=== PATIENT | female | born 1965 | race African-American/Black ===

== ENCOUNTER 2020-09-21 22:14 | Emergency (ER) | payer MEDICAID, OTHER ==
[~2020-09-21] VITALS: Ht 170.2 cm; Wt 167.8 kg
--- NOTE | 2020-09-21 22:32 | NUR ---
DO ESTHELA in room to do MSE.
[2020-09-21] MEDS ORDERED: MORPHINE SULFATE 4 MG/1 ML DISP.SYRIN IM ONE (22:45)
--- NOTE | 2020-09-21 22:50 | NUR ---
controls technician in room to take x-rays of patient.
--- NOTE | 2020-09-21 23:00 | NUR ---
Patient requested hot pack to reduce comfort of left knee. OK per DO Conrado and applied.
[2020-09-21] MEDS ORDERED: MORPHINE SULFATE 4 MG/1 ML DISP.SYRIN ONE (23:01)
[2020-09-21] MEDS ORDERED: OXYC-133 PO (23:26)
[2020-09-21] MEDS ORDERED: DIPH25TA62 PO (23:26)
[2020-09-21 23:30] VITALS: BP 138/88
--- NOTE | 2020-09-21 23:30 | NUR ---
Patient discharged to home in stable condition. Written and verbal after care instructions given. Patient verbalizes understanding of instructions. Stressed follow up or return to ER for worsening s/s. Patient ambulates with steady gait, Rx given, V/S stable, left with all personal belongings.
== END 2020-09-21 23:30 | disposition home or self-care (01) ==
LOC: ER 22:16
DX: G89.29 Other chronic pain (principal); M54.5 Low back pain; M25.562 Pain in left knee; M25.561 Pain in right knee; I10 Essential (primary) hypertension; M17.12 Unilateral primary osteoarthritis, left knee; E66.9 Obesity, unspecified; Z68.43 Body mass index [BMI] 50.0-59.9, adult; M06.9 Rheumatoid arthritis, unspecified
CPT/HCPCS: 73560; 96372; 99283; J2270; A4663

== ENCOUNTER 2020-11-24 11:55 | Emergency (ER) | payer OTHER ==
[~2020-11-24] VITALS: Ht 170.2 cm; Wt 167.8 kg
[~2020-11-24 11:55] MED LIST: DIPH25TA62 PO; OXYC-133 PO
--- NOTE | 2020-11-24 12:10 | NUR ---
at bedside for assessment
[2020-11-24] MEDS ORDERED: MORPHINE SULFATE 4 MG/1 ML DISP.SYRIN IM ONE (12:15)
[2020-11-24] MEDS ORDERED: KETOROLAC TROMETHAMINE 15 MG INJ IM ONE (12:15)
[2020-11-24] MEDS ORDERED: KETOROLAC TROMETHAMINE 15 MG INJ ONE (12:26)
[2020-11-24] MEDS ORDERED: MORPHINE SULFATE 4 MG/1 ML DISP.SYRIN ONE (12:27)
[2020-11-24] MEDS ORDERED: OXYC-128 PO ×2 (12:36→13:10)
--- NOTE | 2020-11-24 12:46 | NUR ---
Patient discharged to home in stable condition. Noted walking with walker. Written and verbal after care instructions given. Rx given. Patient verbalizes understanding of instructions. Stressed follow up or return to ER for worsening s/s.
[2020-11-24 12:47] VITALS: BP 155/83
== END 2020-11-24 12:41 | disposition home or self-care (01) ==
LOC: ER 11:55
DX: G89.29 Other chronic pain (principal); M54.5 Low back pain; M06.9 Rheumatoid arthritis, unspecified; I10 Essential (primary) hypertension; E66.9 Obesity, unspecified; Z68.43 Body mass index [BMI] 50.0-59.9, adult; M17.0 Bilateral primary osteoarthritis of knee; M16.0 Bilateral primary osteoarthritis of hip
CPT/HCPCS: 96372 ×2; 99284; J1885; J2270; A4663

== ENCOUNTER 2020-12-16 18:21 | Emergency (ER) | payer SELFPAY ==
[~2020-12-16 18:21] MED LIST changes: +OXYC-128 PO
--- NOTE | 2020-12-16 18:30 | NUR ---
Pt drove herself here with two other passengers. Pt requested a wheelchair, I went out and assisted the patient into a wheelchair from the drive's seat of her car. Pt was able to stand up with full weight bearing to both legs and get herself in the wheelchair. I went back into the ER waiting room after a few minutes to bring her back to a ER room and I could not find her. The ER admitting department reported the patient left because she stated she could not wait any longer.
[2020-12-19] MEDS ORDERED: OXYC1TAB12 PO (00:23)
== END 2020-12-16 18:37 | disposition left against medical advice (07) ==
LOC: ER 18:22
DX: Z53.21 Procedure and treatment not carried out due to patient leaving prior to being seen by health care provider (principal)

== ENCOUNTER 2020-12-18 20:23 | Emergency (ER) | payer SELFPAY ==
[~2020-12-18] VITALS: Ht 165.1 cm; Wt 166.5 kg
--- NOTE | 2020-12-18 21:05 | NUR ---
Dr Rider at the bedside for MSE.
[2020-12-18] MEDS ORDERED: KETOROLAC TROMETHAMINE 30 MG INJ IM ONE (21:15)
[2020-12-18] MEDS ORDERED: HYDROCODONE/APAP 10-325 MG TABLET PO ONE (21:15)
[2020-12-18] MEDS ORDERED: KETOROLAC TROMETHAMINE 30 MG INJ ONE (21:19)
[2020-12-18] MEDS ORDERED: HYDROCODONE/APAP 10-325 MG TABLET ONE (21:20)
[2020-12-18] MEDS ORDERED: ONDANSETRON ODT 4 MG TAB.RAPDIS SL ONE (21:45)
[2020-12-18] MEDS ORDERED: MORPHINE SULFATE 4 MG/1 ML DISP.SYRIN IM ONE (21:45)
[2020-12-18] MEDS ORDERED: MORPHINE SULFATE 2 MG/1 ML DISP.SYRIN ONE (22:04)
[2020-12-18] MEDS ORDERED: MORPHINE SULFATE 4 MG/1 ML DISP.SYRIN ONE (22:04)
[2020-12-18] MEDS ORDERED: ONDANSETRON ODT 4 MG TAB.RAPDIS ONE (22:04)
[2020-12-18] MEDS ORDERED: OXYC1TAB12 PO (22:18)
[2020-12-18 22:19] VITALS: BP 133/80
--- NOTE | 2020-12-18 22:19 | NUR ---
Patient discharged to home in stable condition. Written and verbal after care instructions given. Patient verbalizes understanding of instructions. Stressed follow up or return to ER for worsening s/s.
[2020-12-19] MEDS ORDERED: OXYC1TAB12 PO (00:23)
== END 2020-12-18 22:21 | disposition home or self-care (01) ==
LOC: ER 20:26
DX: S89.92XA Unspecified injury of left lower leg, initial encounter (principal); S49.92XA Unspecified injury of left shoulder and upper arm, initial encounter; W18.2XXA Fall in (into) shower or empty bathtub, initial encounter; Y93.E1 Activity, personal bathing and showering; Y92.031 Bathroom in apartment as the place of occurrence of the external cause; I10 Essential (primary) hypertension; M06.9 Rheumatoid arthritis, unspecified; M17.12 Unilateral primary osteoarthritis, left knee; M19.012 Primary osteoarthritis, left shoulder; E66.01 Morbid (severe) obesity due to excess calories; Z68.44 Body mass index [BMI] 60.0-69.9, adult
CPT/HCPCS: 73030; 73564; 96372 ×2; 99284; J1885; J2270 ×2; A4663; Q0162

== ENCOUNTER 2020-12-29 15:51 | Emergency (ER) | payer OTHER ==
[~2020-12-29] VITALS: Ht 165.1 cm; Wt 165.6 kg
[~2020-12-29 15:51] MED LIST changes: +OXYC1TAB12 PO
[2020-12-29] MEDS ORDERED: KETOROLAC TROMETHAMINE 60 MG INJ IM ONE ×2 (16:45→16:53)
[2020-12-29] MEDS ORDERED: MORPHINE SULFATE 4 MG/1 ML DISP.SYRIN IM ONE (16:45)
[2020-12-29] MEDS ORDERED: MORPHINE SULFATE 2 MG/1 ML DISP.SYRIN ONE (16:53)
[2020-12-29] MEDS ORDERED: MORPHINE SULFATE 4 MG/1 ML DISP.SYRIN ONE (16:53)
[2020-12-29] MEDS ORDERED: CYCL10TA9 PO (18:56)
[2020-12-29] MEDS ORDERED: HYDR-4209 PO (18:56)
--- NOTE | 2020-12-29 19:02 | NUR ---
Patient discharged to home in stable condition. Written and verbal after care instructions given. Patient verbalizes understanding of instructions. Stressed follow up or return to ER for worsening s/s.pt is not driving.
[2020-12-29 19:03] VITALS: BP 131/81
== END 2020-12-29 19:03 | disposition home or self-care (01) ==
LOC: ER 15:52
DX: S33.5XXA Sprain of ligaments of lumbar spine, initial encounter (principal); V43.52XA Car driver injured in collision with other type car in traffic accident, initial encounter; Y92.414 Local residential or business street as the place of occurrence of the external cause; M19.012 Primary osteoarthritis, left shoulder; M17.12 Unilateral primary osteoarthritis, left knee; Z90.49 Acquired absence of other specified parts of digestive tract; E66.01 Morbid (severe) obesity due to excess calories; Z68.44 Body mass index [BMI] 60.0-69.9, adult; M06.9 Rheumatoid arthritis, unspecified; I10 Essential (primary) hypertension; Z82.49 Family history of ischemic heart disease and other diseases of the circulatory system
CPT/HCPCS: 72110; 72220; 73030; 73564; 96372 ×2; 99284; J1885; J2270 ×2; A4663

== ENCOUNTER 2021-01-13 23:15 | Emergency (ER) | payer OTHER ==
[~2021-01-13] VITALS: Ht 167.6 cm; Wt 170.6 kg
[~2021-01-13 23:15] MED LIST changes: +CYCL10TA9 PO; +HYDR-4209 PO
--- NOTE | 2021-01-13 23:34 | NUR ---
Dr. Perez at bedside for mse.
[2021-01-14 00:09] VITALS: BP 149/99
--- NOTE | 2021-01-14 00:09 | NUR ---
Patient discharged to home in stable condition. Written and verbal after care instructions given. Patient verbalizes understanding of instructions. Stressed follow up or return to ER for worsening s/s. Patient out of ER with steady gait, no acute signs of distress, VSS, all belongings taken.
== END 2021-01-14 00:19 | disposition home or self-care (01) ==
LOC: ER 23:18
DX: L97.121 Non-pressure chronic ulcer of left thigh limited to breakdown of skin (principal); F17.210 Nicotine dependence, cigarettes, uncomplicated; G89.4 Chronic pain syndrome; J44.9 Chronic obstructive pulmonary disease, unspecified; E66.01 Morbid (severe) obesity due to excess calories; Z68.44 Body mass index [BMI] 60.0-69.9, adult; F19.10 Other psychoactive substance abuse, uncomplicated; Z90.49 Acquired absence of other specified parts of digestive tract; F31.9 Bipolar disorder, unspecified; R03.0 Elevated blood-pressure reading, without diagnosis of hypertension
CPT/HCPCS: A4663

== ENCOUNTER 2021-02-09 15:45 | Emergency (ER) | payer OTHER ==
[~2021-02-09] VITALS: Ht 165.1 cm; Wt 165.6 kg
[2021-02-09] MEDS ORDERED: MORPHINE SULFATE 2 MG/1 ML DISP.SYRIN IM ONE (17:15)
[2021-02-09] MEDS ORDERED: NEOMY/BACITRA/POLYMYXIN B OINT UD PACKET TP ONE (17:15)
[2021-02-09] MEDS ORDERED: CYCLOBENZAPRINE HCL 10 MG TABLET PO ONE (17:15)
[2021-02-09] MEDS ORDERED: KETOROLAC TROMETHAMINE 30 MG INJ IM ONE (17:15)
[2021-02-09] MEDS ORDERED: BACITRACIN ZINC OINT 15 GM TUBE ONE (17:33)
[2021-02-09] MEDS ORDERED: KETOROLAC TROMETHAMINE 30 MG INJ ONE (17:33)
[2021-02-09] MEDS ORDERED: CYCLOBENZAPRINE HCL 10 MG TABLET ONE (17:33)
[2021-02-09] MEDS ORDERED: MORPHINE SULFATE 2 MG/1 ML DISP.SYRIN ONE (17:34)
[2021-02-09] MEDS ORDERED: DEXT15SY3 PO (17:59)
== END 2021-02-09 18:21 | disposition home or self-care (01) ==
LOC: ER 15:46
DX: M54.5 Low back pain (principal); T24.212A Burn of second degree of left thigh, initial encounter; X19.XXXA Contact with other heat and hot substances, initial encounter; Y92.89 Other specified places as the place of occurrence of the external cause; J44.9 Chronic obstructive pulmonary disease, unspecified; F31.9 Bipolar disorder, unspecified; E66.01 Morbid (severe) obesity due to excess calories; Z68.44 Body mass index [BMI] 60.0-69.9, adult; Z90.49 Acquired absence of other specified parts of digestive tract; R03.0 Elevated blood-pressure reading, without diagnosis of hypertension; F17.210 Nicotine dependence, cigarettes, uncomplicated
CPT/HCPCS: 16020; 96372 ×2; 99284; J1885; J2270; A4663

== ENCOUNTER 2021-04-17 18:17 | Emergency (ER) | payer OTHER ==
[~2021-04-17] VITALS: Ht 165.1 cm; Wt 165.6 kg
[~2021-04-17 18:17] MED LIST changes: +DEXT15SY3 PO
[2021-04-17] MEDS ORDERED: OXYCODONE/APAP 5-325 MG TABLET PO ONE (18:45)
[2021-04-17] MEDS ORDERED: OXYCODONE/APAP 5-325 MG TABLET ONE (19:00)
--- NOTE | 2021-04-17 19:05 | NUR ---
RECEIVED REPORT FROM YOLANDA CHA.
--- NOTE | 2021-04-17 19:10 | NUR ---
XRAY AT BEDSIDE.
[2021-04-17] MEDS ORDERED: KETOROLAC TROMETHAMINE 30 MG INJ IM ONE (19:15)
[2021-04-17] MEDS ORDERED: KETOROLAC TROMETHAMINE 30 MG INJ ONE (19:29)
[2021-04-17] MEDS ORDERED: OXYC-128 PO (20:22)
--- NOTE | 2021-04-17 20:36 | NUR ---
Patient discharged to home in stable condition. No changes in LOC. Denies any pain/discomfort upon discharge. Steady gait. Written and verbal after care instructions given. Patient verbalizes understanding of instructions. Stressed follow up or return to ER for worsening s/s. Picked up by family.
[2021-04-17 20:39] VITALS: BP 136/81
== END 2021-04-17 20:35 | disposition home or self-care (01) ==
LOC: ER 18:18
DX: S89.92XA Unspecified injury of left lower leg, initial encounter (principal); W19.XXXA Unspecified fall, initial encounter; Y92.89 Other specified places as the place of occurrence of the external cause; M17.12 Unilateral primary osteoarthritis, left knee; E66.01 Morbid (severe) obesity due to excess calories; Z68.44 Body mass index [BMI] 60.0-69.9, adult; F17.210 Nicotine dependence, cigarettes, uncomplicated; Z82.49 Family history of ischemic heart disease and other diseases of the circulatory system; Z83.49 Family history of other endocrine, nutritional and metabolic diseases; Z90.49 Acquired absence of other specified parts of digestive tract; G89.4 Chronic pain syndrome; F31.9 Bipolar disorder, unspecified; J44.9 Chronic obstructive pulmonary disease, unspecified
CPT/HCPCS: 73564; 96372; 99283; J1885; A4663

== ENCOUNTER 2021-10-26 13:04 | Emergency (ER) | payer OTHER ==
[~2021-10-26] VITALS: Ht 165.1 cm; Wt 136.1 kg
[2021-10-26] MEDS ORDERED: FLUO40CA8 PO (13:36)
[2021-10-26] MEDS ORDERED: FURO-151 PO (13:36)
[2021-10-26] MEDS ORDERED: LISI10TA29 PO (13:37)
[2021-10-26] MEDS ORDERED: OXYCODONE HCL 5 MG TABLET ONE (14:24)
[2021-10-26] MEDS ORDERED: OXYCODONE HCL 5 MG TABLET PO ONE (14:30)
[2021-10-26] MEDS ORDERED: OXYC-133 PO (15:18)
== END 2021-10-26 15:29 | disposition home or self-care (01) ==
LOC: ER 13:04
DX: S62.102A Fracture of unspecified carpal bone, left wrist, initial encounter for closed fracture (principal); S49.92XA Unspecified injury of left shoulder and upper arm, initial encounter; W19.XXXA Unspecified fall, initial encounter; Y92.89 Other specified places as the place of occurrence of the external cause; F17.210 Nicotine dependence, cigarettes, uncomplicated; E66.01 Morbid (severe) obesity due to excess calories; Z68.42 Body mass index [BMI] 45.0-49.9, adult; F31.9 Bipolar disorder, unspecified; Z79.899 Other long term (current) drug therapy; Z90.49 Acquired absence of other specified parts of digestive tract; J44.9 Chronic obstructive pulmonary disease, unspecified; R29.6 Repeated falls
CPT/HCPCS: 73030; 73110; 73130; A4663

== ENCOUNTER 2022-04-09 12:35 | Emergency (ER) | payer OTHER ==
[~2022-04-09] VITALS: Ht 165.1 cm; Wt 145.1 kg
[~2022-04-09 12:35] MED LIST changes: +FLUO40CA8 PO; +FURO-151 PO; +LISI10TA29 PO
[2022-04-09] MEDS ORDERED: LIDOCAINE 5% PATCH TD ONE ×2 (13:30→14:24)
[2022-04-09] MEDS ORDERED: ACETAMINOPHEN 325 MG TABLET PO ONE (13:30)
[2022-04-09] MEDS ORDERED: MORPHINE SULFATE 4 MG/1 ML DISP.SYRIN IM ONE (13:30)
[2022-04-09] MEDS ORDERED: KETOROLAC TROMETHAMINE 30 MG INJ IM ONE (13:30)
[2022-04-09] MEDS ORDERED: LIDO30AD10 TP (13:54)
[2022-04-09] MEDS ORDERED: OXYC-133 PO (13:54)
[2022-04-09] MEDS ORDERED: BACL20TA PO (13:54)
[2022-04-09] MEDS ORDERED: IBUP-1955 PO (13:54)
[2022-04-09] MEDS ORDERED: FLUC150T PO (14:14)
[2022-04-09] MEDS ORDERED: ACETAMINOPHEN 325 MG TABLET ONE (14:24)
[2022-04-09] MEDS ORDERED: KETOROLAC TROMETHAMINE 30 MG INJ ONE (14:24)
[2022-04-09] MEDS ORDERED: ACETAMINOPHEN ES 500 MG TABLET ONE (14:26)
[2022-04-09] MEDS ORDERED: ACETAMINOPHEN ES 500 MG TABLET PO ONE (14:45)
[2022-04-09 15:02] VITALS: BP 126/78
== END 2022-04-09 15:02 | disposition home or self-care (01) ==
LOC: ER 12:35
DX: M54.50 Low back pain, unspecified (principal); G89.29 Other chronic pain; E66.01 Morbid (severe) obesity due to excess calories; Z68.43 Body mass index [BMI] 50.0-59.9, adult; Z90.49 Acquired absence of other specified parts of digestive tract; Z82.49 Family history of ischemic heart disease and other diseases of the circulatory system; F17.210 Nicotine dependence, cigarettes, uncomplicated; M19.90 Unspecified osteoarthritis, unspecified site
CPT/HCPCS: 99283; 96372; J1885; A4663; A9150

== ENCOUNTER 2022-06-13 17:28 | Emergency (ER) | payer OTHER ==
[~2022-06-13] VITALS: Ht 165.1 cm; Wt 145.1 kg
[~2022-06-13 17:28] MED LIST changes: +BACL20TA PO; +FLUC150T PO; +IBUP-1955 PO; +LIDO30AD10 TP
--- NOTE | 2022-06-13 18:25 | NUR ---
RECEIVED PT IN NAD; VSS.
--- NOTE | 2022-06-13 19:24 | NUR ---
SBAR TO LYLA GUERRERO
[2022-06-13] MEDS ORDERED: HYDROMORPHONE 1 MG/1 ML DISP.SYRIN IM ONE ×2 (20:00→23:15)
[2022-06-13] MEDS ORDERED: IPRATROPIUM BROMIDE 0.5 MG/2.5 ML NEBU NEB ONE (20:00)
[2022-06-13] MEDS ORDERED: ALBUTEROL SULFATE 2.5 MG/3 ML NEBU NEB ONE (20:00)
[2022-06-13] MEDS ORDERED: HYDROMORPHONE 1 MG/1 ML DISP.SYRIN ONE ×2 (20:25→22:42)
[2022-06-13] MEDS ORDERED: IPRATROPIUM BROMIDE 0.5 MG/2.5 ML NEBU ONE (20:37)
[2022-06-13] MEDS ORDERED: ALBUTEROL SULFATE 2.5 MG/3 ML NEBU ONE (20:37)
[2022-06-13 20:39] LABS: HEMATOCRIT 36.3 % (31.2-41.9); MEAN CORPUSCULAR HEMOGLOBIN 30.9 uug (24.7-32.8); MEAN CORPUSCULAR VOLUME 93.7 fL (75.5-95.3); PLATELET COUNT (AUTO) 269 K/uL (179-408)
[2022-06-13 21:02] LABS: ALANINE AMINOTRANSFERASE 19 U/L (14-59); ALKALINE PHOSPHATASE 102 U/L (50-136); ASPARTATE AMINOTRANSFERASE 16 U/L (15-37); BILIRUBIN,DIRECT 0.1 mg/dL (0.0-0.2); BILIRUBIN,TOTAL 0.3 mg/dL (0.2-1.0); CARBON DIOXIDE 30 mmol/L (21-32); CHLORIDE 103 mmol/L (98-107); CREATININE 0.9 mg/dL (0.6-1.3); GLUCOSE 94 mg/dL (74-106); POTASSIUM 3.4 mmol/L (3.5-5.1); TOTAL PROTEIN, SERUM 7.9 g/dL (6.4-8.2); UREA NITROGEN, BLOOD 16 mg/dL (7-18)
[2022-06-13] MEDS ORDERED: OXYC-133 PO (23:16)
--- NOTE | 2022-06-13 23:20 | NUR ---
Patient discharged to home in stable condition. A/O x4. NAD noted. Ambulatory with steady gait and cane for assist. All belongings with patient. Written and verbal after care instructions given. Patient verbalizes understanding of instructions. Stressed follow up or return to ER for worsening s/s.
[2022-06-13 23:27] VITALS: BP 155/74
== END 2022-06-13 23:20 | disposition home or self-care (01) ==
LOC: ER 17:28
DX: S83.92XA Sprain of unspecified site of left knee, initial encounter (principal); S23.3XXA Sprain of ligaments of thoracic spine, initial encounter; W18.30XA Fall on same level, unspecified, initial encounter; Y92.89 Other specified places as the place of occurrence of the external cause; R07.9 Chest pain, unspecified; J45.909 Unspecified asthma, uncomplicated; M17.12 Unilateral primary osteoarthritis, left knee; E87.6 Hypokalemia; Z90.49 Acquired absence of other specified parts of digestive tract; F17.210 Nicotine dependence, cigarettes, uncomplicated; E66.01 Morbid (severe) obesity due to excess calories; Z68.43 Body mass index [BMI] 50.0-59.9, adult; I11.0 Hypertensive heart disease with heart failure; I50.9 Heart failure, unspecified
CPT/HCPCS: 99285; 93970; 71045; 80076; 80048; 83880; 85025; 85379; 84484 ×3; 36415; 93005; 73564; 94640; 96372; J1170 ×2; A4663; J3590

== ENCOUNTER 2022-07-03 16:28 | Emergency (ER) | payer OTHER ==
[~2022-07-03] VITALS: Ht 165.1 cm; Wt 145.1 kg
[2022-07-03 19:58] LABS: HEMATOCRIT 40.2 % (31.2-41.9); MEAN CORPUSCULAR HEMOGLOBIN 30.6 uug (24.7-32.8); MEAN CORPUSCULAR VOLUME 93.6 fL (75.5-95.3); PLATELET COUNT (AUTO) 300 K/uL (179-408)
[2022-07-03] MEDS ORDERED: ALBUTEROL SULFATE 2.5 MG/3 ML NEBU NEB ONE (20:00)
[2022-07-03] MEDS ORDERED: IPRATROPIUM BROMIDE 0.5 MG/2.5 ML NEBU NEB ONE (20:00)
[2022-07-03] MEDS ORDERED: IPRATROPIUM BROMIDE 0.5 MG/2.5 ML NEBU ONE (20:10)
[2022-07-03] MEDS ORDERED: ALBUTEROL SULFATE 2.5 MG/3 ML NEBU ONE (20:10)
[2022-07-03 20:12] LABS: BILIRUBIN,DIRECT 0.1 mg/dL (0.0-0.2); BILIRUBIN,TOTAL 0.3 mg/dL (0.2-1.0); POTASSIUM 3.3 mmol/L (3.5-5.1); TOTAL PROTEIN, SERUM 8.8 g/dL (6.4-8.2)
[2022-07-03] MEDS ORDERED: MAGNESIUM SULFATE/D5W 100 ML IV SCH (20:15)
[2022-07-03] MEDS ORDERED: methylPREDNISolone SOD SUCC 40 MG/ML VIAL IV ONE (20:15)
[2022-07-03] MEDS ORDERED: KETOROLAC TROMETHAMINE 30 MG INJ IVP ONE (20:30)
[2022-07-03] MEDS ORDERED: POTASSIUM CHLORIDE 20 MEQ TAB.PRT.SR PO ONE (20:30)
[2022-07-03] MEDS ORDERED: PRED20TA PO (21:20)
[2022-07-03] MEDS ORDERED: NAPR-1192 PO (21:20)
[2022-07-03] MEDS ORDERED: KETOROLAC TROMETHAMINE 30 MG INJ ONE (21:29)
[2022-07-03] MEDS ORDERED: methylPREDNISolone SOD SUCC 40 MG/ML VIAL ONE (21:29)
[2022-07-03] MEDS ORDERED: POTASSIUM CHLORIDE 20 MEQ TAB.PRT.SR ONE (21:29)
[2022-07-03] MEDS ORDERED: MORPHINE SULFATE 4 MG/1 ML DISP.SYRIN IV ONE (22:00)
[2022-07-03] MEDS ORDERED: MORPHINE SULFATE 4 MG/1 ML DISP.SYRIN ONE (22:22)
--- NOTE | 2022-07-03 22:51 | NUR ---
Patient discharged to home in stable condition. Written and verbal after care instructions given. Given instructions not to drive. Patient verbalizes understanding of instructions. Stressed follow up or return to ER for worsening s/s.
[2022-07-03 22:55] VITALS: BP 140/84
== END 2022-07-03 23:00 | disposition home or self-care (01) ==
LOC: ER 16:28
DX: M25.551 Pain in right hip (principal); J45.909 Unspecified asthma, uncomplicated; E66.01 Morbid (severe) obesity due to excess calories; Z68.43 Body mass index [BMI] 50.0-59.9, adult; F17.210 Nicotine dependence, cigarettes, uncomplicated; Z82.49 Family history of ischemic heart disease and other diseases of the circulatory system; Z83.49 Family history of other endocrine, nutritional and metabolic diseases; Z90.49 Acquired absence of other specified parts of digestive tract; M19.90 Unspecified osteoarthritis, unspecified site
CPT/HCPCS: 99285; 96374; 72192; 71045; 96375; 80076; 80048; 83880; 85025; 36415; 73502; 94640; J1885; J2920; J2270; A4663; J3590

== ENCOUNTER 2022-07-24 09:35 | Emergency (ER) | payer OTHER ==
[~2022-07-24] VITALS: Ht 165.1 cm; Wt 155.6 kg
[~2022-07-24 09:35] MED LIST changes: +NAPR-1192 PO; +PRED20TA PO
--- NOTE | 2022-07-24 10:35 | NUR ---
Pt arrived with c/o low back pain, 02/06, characterized as aching, non-radiating. Seen by INDIRA for MSE.
[2022-07-24] MEDS ORDERED: MORPHINE SULFATE 2 MG/1 ML DISP.SYRIN IV ONE (10:45)
[2022-07-24] MEDS ORDERED: KETOROLAC TROMETHAMINE 15 MG INJ IVP ONE ×2 (10:45→12:15)
--- NOTE | 2022-07-24 10:45 | NUR ---
Pt stated that she is a hardstick and prefer to have IV placement via ultrasound. Informed MD. placed 20G via US on R UA. Pt well tolerated, IV secured and intact.
[2022-07-24] MEDS ORDERED: MORPHINE SULFATE 4 MG/1 ML DISP.SYRIN ONE ×2 (10:48→12:16)
[2022-07-24] MEDS ORDERED: KETOROLAC TROMETHAMINE 15 MG INJ ONE ×2 (10:48→12:15)
[2022-07-24 10:57] LABS: HEMATOCRIT 34.6 % (31.2-41.9); MEAN CORPUSCULAR HEMOGLOBIN 30.1 uug (24.7-32.8); MEAN CORPUSCULAR VOLUME 94.4 fL (75.5-95.3); PLATELET COUNT (AUTO) 242 K/uL (179-408)
[2022-07-24 11:05] LABS: CREATININE 0.7 mg/dL (0.6-1.3); POTASSIUM 3.9 mmol/L (3.5-5.1)
[2022-07-24 11:07] LABS: TOTAL PROTEIN, SERUM 7.6 g/dL (6.4-8.2)
[2022-07-24 11:10] LABS: BILIRUBIN,DIRECT 0.1 mg/dL (0.0-0.2); BILIRUBIN,TOTAL 0.3 mg/dL (0.2-1.0)
[2022-07-24 11:15] LABS: *BILIRUBIN,URIN NEGATIVE (NEGATIVE); *CLARITY,URINE CLEAR (CLEAR); *COLOR,URINE YELLOW (YELLOW); *KETONES,URINE NEGATIVE (NEGATIVE); *UROBILINOGEN,URINE 0.2 E.U./dl (NORMAL); LEUKOCYTE ESTERASE ,URINE NEGATIVE (NEGATIVE); NITRITE, URINE NEGATIVE (NEGATIVE); PH,URINE 6.5 (5.0-8.0); UGLUCOSE NEGATIVE (NEGATIVE)
[2022-07-24 11:17] LABS: *BLOOD, URINE TRACE (NEGATIVE)
[2022-07-24] MEDS ORDERED: IOHEXOL 300MG/ML 100 ML INFUS..BTL ONE (11:17)
[2022-07-24] MEDS ORDERED: SWABABLE VALVE TRANSFER SET EA MC ONE (11:17)
[2022-07-24] MEDS ORDERED: IV NORMAL SALINE 250 ML IV ONE (11:17)
[2022-07-24] MEDS ORDERED: MORPHINE SULFATE 4 MG/1 ML DISP.SYRIN IV ONE (12:15)
--- NOTE | 2022-07-24 12:30 | NUR ---
Pt has taken the IV off of R UA after administration of second dose of Morphine and Toradol. Pt stated, "I gotta get out of here".
--- NOTE | 2022-07-24 12:42 | NUR ---
Pt discharged to home in stable condition. Written and verbal after care instructions given. Pt verbalizes understanding of instructions. Stressed follow up or return to ER for worsening s/s.
[2022-07-24 12:44] VITALS: BP 139/89
[2022-07-24 15:03] LABS: BACTERIA,URINE NONE SEEN /HPF (NONE SEEN); SQUAMOUS EPITHELIAL CELL,UR FEW /HPF (NONE SEEN); WBC,URINE 0-3 /HPF (0-3)
[2022-07-24 15:04] LABS: *URINE HCG, QUAL NEGATIVE (NEGATIVE)
== END 2022-07-24 12:45 | disposition home or self-care (01) ==
LOC: ER 09:35
DX: G89.29 Other chronic pain (principal); M54.9 Dorsalgia, unspecified; Z98.84 Bariatric surgery status; K44.9 Diaphragmatic hernia without obstruction or gangrene; M16.0 Bilateral primary osteoarthritis of hip; Z90.49 Acquired absence of other specified parts of digestive tract; Z82.49 Family history of ischemic heart disease and other diseases of the circulatory system; E66.01 Morbid (severe) obesity due to excess calories; Z68.43 Body mass index [BMI] 50.0-59.9, adult; J45.909 Unspecified asthma, uncomplicated; I10 Essential (primary) hypertension; Z79.899 Other long term (current) drug therapy
CPT/HCPCS: 36415; 83690; 84703; 85025; A4663; J1885; J2270; Q9967

== ENCOUNTER 2022-08-02 18:33 | Emergency (ER) | payer OTHER ==
[~2022-08-02] VITALS: Ht 165.1 cm; Wt 145.1 kg
[2022-08-02] MEDS ORDERED: ALBUTEROL SULFATE 2.5 MG/3 ML NEBU NEB ONE (20:15)
[2022-08-02] MEDS ORDERED: CHOLECALCIFEROL 1,000 UNIT TABLET PO SCH (20:15)
[2022-08-02] MEDS ORDERED: HYDROMORPHONE 1 MG/1 ML DISP.SYRIN IV ONE ×2 (20:15→21:15)
[2022-08-02] MEDS ORDERED: IPRATROPIUM BROMIDE 0.5 MG/2.5 ML NEBU NEB ONE (20:15)
[2022-08-02] MEDS ORDERED: IV NS 1000 ML 1,000 ML IV ONE (20:15)
[2022-08-02] MEDS ORDERED: ONDANSETRON 4 MG/2 ML VIAL IV ONE (20:15)
[2022-08-02 20:19] LABS: HEMATOCRIT 34.8 % (31.2-41.9); MEAN CORPUSCULAR HEMOGLOBIN 30.6 uug (24.7-32.8); MEAN CORPUSCULAR VOLUME 93.6 fL (75.5-95.3); PLATELET COUNT (AUTO) 292 K/uL (179-408)
--- NOTE | 2022-08-02 20:24 | NUR ---
Patient ambulated into room #2-b with c/o sob, diarrhea, vomiting, cough and earache x 3 days. Parient informed of plan of care, assisted into a gown and placed on monitor. Patient is alert and oriented x 4, wheezing noted abd soft, obese and non tender to touch. #20g established in left ac, blood collected and sent to lab.
[2022-08-02 20:29] LABS: CREATININE 0.9 mg/dL (0.6-1.3); MAGNESIUM 2.1 mg/dL (1.8-2.4); POTASSIUM 4.2 mmol/L (3.5-5.1)
[2022-08-02] MEDS ORDERED: ONDANSETRON 4 MG/2 ML VIAL ONE (20:31)
[2022-08-02] MEDS ORDERED: HYDROMORPHONE 2 MG/1 ML DISP.SYRIN ONE (20:32)
[2022-08-02] MEDS ORDERED: CHOLECALCIFEROL 1,000 UNIT TABLET ONE (20:32)
[2022-08-02] MEDS ORDERED: IPRATROPIUM BROMIDE 0.5 MG/2.5 ML NEBU ONE (20:35)
[2022-08-02] MEDS ORDERED: ALBUTEROL SULFATE 2.5 MG/3 ML NEBU ONE (20:35)
--- NOTE | 2022-08-02 20:37 | NUR ---
ADDENDUM: Intravenous End Time Documentation: Normal saline 1 liter (IV-WO) : start time: 2036 ; end time: 2136 : IV site:LAC PIV # 20 Port # 1
[2022-08-02] MEDS ORDERED: HYDROMORPHONE 1 MG/1 ML DISP.SYRIN ONE ×2 (22:05→22:07)
--- NOTE | 2022-08-02 23:51 | NUR ---
patient resting in bed, IVF not infusing because patient will not keep her arm striaght. Patient has been informed several times. no s/s of any distress at this time.
[2022-08-02] MEDS ORDERED: HYDR4TAB4 PO (23:54)
[2022-08-02] MEDS ORDERED: LORA-259 PO (23:54)
[2022-08-02] MEDS ORDERED: DIPH25CA83 PO (23:54)
[2022-08-03] MEDS ORDERED: LORAZEPAM 2 MG/1 ML VIAL IV ONE
--- NOTE | 2022-08-03 00:26 | NUR ---
ACI given states understanding remains stable for ischarge home.
[2022-08-03] MEDS ORDERED: LORAZEPAM 2 MG/1 ML VIAL ONE (00:38)
--- NOTE | 2022-08-03 00:44 | NUR ---
MD at bedside talking with patient.
[2022-08-03] MEDS ORDERED: OXYC1TAB12 PO (00:58)
--- NOTE | 2022-08-03 01:00 | NUR ---
HL removed RX changed, patient stable for discharge home with family via uber.
[2022-08-03 01:01] VITALS: BP 131/64
--- NOTE | 2022-08-03 20:37 | NUR ---
Jose Luis flores in ED - 08/21/22 at 1358 by IVÁN ADDENDUM: Intravenous End Time Documentation: Normal saline 1 liter (IV-WO) : start time: 2036 ; end time: 2136 : IV site:LAC PIV # 20 Port # 1
== END 2022-08-03 01:14 | disposition home or self-care (01) ==
LOC: ER 18:33
DX: U07.1 COVID-19 (principal); M79.10 Myalgia, unspecified site; J98.01 Acute bronchospasm; F17.210 Nicotine dependence, cigarettes, uncomplicated; E66.01 Morbid (severe) obesity due to excess calories; Z68.43 Body mass index [BMI] 50.0-59.9, adult; M19.90 Unspecified osteoarthritis, unspecified site; G89.29 Other chronic pain; M25.562 Pain in left knee; M25.561 Pain in right knee; Z98.84 Bariatric surgery status; Z90.49 Acquired absence of other specified parts of digestive tract; Z82.49 Family history of ischemic heart disease and other diseases of the circulatory system
CPT/HCPCS: 99285; 96374; 71045; 96375; 96361; 80048; 83735; 85025; 36415; 94644; 96376; J2405; J1170 ×3; J2060; J3590

== ENCOUNTER 2022-08-09 10:36 | Emergency (ER) | payer OTHER ==
[~2022-08-09] VITALS: Ht 165.1 cm; Wt 145.1 kg
[~2022-08-09 10:36] MED LIST changes: +DIPH25CA83 PO; +HYDR4TAB4 PO; +LORA-259 PO; -NAPR-1192 PO
[2022-08-09] MEDS ORDERED: ALBUTEROL SULFATE 2.5 MG/3 ML NEBU NEB ONE (11:15)
[2022-08-09] MEDS ORDERED: ACETAMINOPHEN ES 500 MG TABLET PO ONE (11:15)
[2022-08-09] MEDS ORDERED: ALBUTEROL SULFATE 2.5 MG/3 ML NEBU ONE (11:20)
--- NOTE | 2022-08-09 11:20 | NUR ---
Patient is AOx4, morbidly obese, c/o generalized aches with angry and guarded demeanor with staff interaction, her respiration is easy, non-labored and even. Patient added left knee pains, NAD.
[2022-08-09 11:23] LABS: HEMATOCRIT 34.1 % (31.2-41.9); MEAN CORPUSCULAR HEMOGLOBIN 29.8 uug (24.7-32.8); MEAN CORPUSCULAR VOLUME 93.5 fL (75.5-95.3); PLATELET COUNT (AUTO) 258 K/uL (179-408)
[2022-08-09] MEDS ORDERED: ACETAMINOPHEN ES 500 MG TABLET ONE (11:28)
--- NOTE | 2022-08-09 11:30 | NUR ---
Patient is seen removing her EKG cables, SpO2 probe and BP cuff while using her personal Quire device, NAD.
[2022-08-09 11:37] LABS: CARBON DIOXIDE 30 mmol/L (21-32); CHLORIDE 104 mmol/L (98-107); GLUCOSE 108 mg/dL (74-106); POTASSIUM 3.8 mmol/L (3.5-5.1); UREA NITROGEN, BLOOD 19 mg/dL (7-18)
[2022-08-09 11:50] LABS: ALANINE AMINOTRANSFERASE 12 U/L (14-59); ALKALINE PHOSPHATASE 96 U/L (50-136); ASPARTATE AMINOTRANSFERASE 14 U/L (15-37); BILIRUBIN,TOTAL 0.3 mg/dL (0.2-1.0); TOTAL PROTEIN, SERUM 7.3 g/dL (6.4-8.2)
[2022-08-09 11:51] LABS: BILIRUBIN,DIRECT < 0.1 mg/dL (0.0-0.2)
[2022-08-09] MEDS ORDERED: IBUPROFEN 400 MG TABLET ONE (12:21)
[2022-08-09] MEDS: IBUPROFEN 400 MG TABLET PO ONE ×2 (12:24→12:28)
--- NOTE | 2022-08-09 12:27 | NUR ---
Patient refused po ibuprofen and wanted JosuéadolMD notified. Patient took the hospital-prepared sandwich packet. Warm compress provided to left knee per patient's request. CD [facility]
--- NOTE | 2022-08-09 12:44 | NUR ---
Patient is seen using her cellphone most of the times while in ER, NAD, pending results and disposition.
[2022-08-09] MEDS ORDERED: KETOROLAC TROMETHAMINE 15 MG INJ ONE (12:57)
[2022-08-09] MEDS ORDERED: KETOROLAC TROMETHAMINE 15 MG INJ IM ONE (13:00)
--- NOTE | 2022-08-09 13:09 | NUR ---
Patient is seen walking steadily using her own walker to the bathroom, no acute change in condition seen.
--- NOTE | 2022-08-09 13:15 | NUR ---
Patient walked to the nurses'-doctor station loudly saying, "Can I get my discharge papers?"
--- NOTE | 2022-08-09 13:23 | NUR ---
Patient discharged to home in stable condition. Written and verbal after care instructions given to patient. Patient verbalized understanding and compliance of instructions. Stressed follow up with primary doctor and pain doctor or return to ER for worsening s/s.
== END 2022-08-09 13:23 | disposition home or self-care (01) ==
LOC: ER 10:36
DX: M25.562 Pain in left knee (principal); M79.10 Myalgia, unspecified site; U07.1 COVID-19; E66.01 Morbid (severe) obesity due to excess calories; Z68.43 Body mass index [BMI] 50.0-59.9, adult; F17.210 Nicotine dependence, cigarettes, uncomplicated; Z83.49 Family history of other endocrine, nutritional and metabolic diseases; Z82.49 Family history of ischemic heart disease and other diseases of the circulatory system; Z90.49 Acquired absence of other specified parts of digestive tract; J45.909 Unspecified asthma, uncomplicated; Z79.899 Other long term (current) drug therapy; J44.9 Chronic obstructive pulmonary disease, unspecified; I89.0 Lymphedema, not elsewhere classified; M19.90 Unspecified osteoarthritis, unspecified site; I10 Essential (primary) hypertension
CPT/HCPCS: 99285; 71045; 80076; 80048; 83880; 85025; 85379; 85730; 84484 ×2; 36415; 93005; 73560; 94640; 96372; J1885; A4663; A9150

== ENCOUNTER 2022-09-20 02:45 | Emergency (ER) | payer OTHER ==
--- NOTE | 2022-09-20 03:09 | NUR ---
Called Patient's name, checked waiting room, and no response. logistics clerk informed me thast patient stasted that she was leaving.
== END 2022-09-20 03:10 | disposition left against medical advice (07) ==
LOC: ER 02:56
DX: Z53.21 Procedure and treatment not carried out due to patient leaving prior to being seen by health care provider (principal)

== ENCOUNTER 2022-10-13 20:11 | Emergency (ER) | payer OTHER ==
[~2022-10-13] VITALS: Ht 165.1 cm; Wt 149.2 kg
[2022-10-13] MEDS ORDERED: HYDROCODONE/APAP 10-325 MG TABLET PO ONE (20:45)
[2022-10-13] MEDS ORDERED: HYDROCODONE/APAP 10-325 MG TABLET ONE (20:46)
[2022-10-13] MEDS ORDERED: OXYCODONE/APAP 5-325 MG TABLET ONE (21:08)
[2022-10-13] MEDS ORDERED: OXYCODONE/APAP 5-325 MG TABLET PO ONE (21:15)
--- NOTE | 2022-10-13 22:59 | NUR ---
Patient has a ride home and will not be driving.
[2022-10-13 23:19] VITALS: BP 127/69
== END 2022-10-13 23:20 | disposition home or self-care (01) ==
LOC: ER 20:11
DX: S99.912A Unspecified injury of left ankle, initial encounter (principal); G89.29 Other chronic pain; M79.605 Pain in left leg; E66.01 Morbid (severe) obesity due to excess calories; Z68.43 Body mass index [BMI] 50.0-59.9, adult; I50.9 Heart failure, unspecified; J45.909 Unspecified asthma, uncomplicated; Z90.49 Acquired absence of other specified parts of digestive tract; F17.210 Nicotine dependence, cigarettes, uncomplicated; Z79.899 Other long term (current) drug therapy; W18.39XA Other fall on same level, initial encounter; Y93.89 Activity, other specified; Y92.89 Other specified places as the place of occurrence of the external cause; Y99.8 Other external cause status
CPT/HCPCS: 73590; 73610; 73630; A4663

== ENCOUNTER 2022-11-20 00:20 | Emergency (ER) | payer OTHER ==
[~2022-11-20] VITALS: Ht 165.1 cm; Wt 145.1 kg
--- NOTE | 2022-11-20 00:55 | NUR ---
PT AMB TO 4A WITH STEADY GAIT.
[2022-11-20] MEDS ORDERED: IV NORMAL SALINE 1000 ML BAG IV ONE (01:00)
[2022-11-20] MEDS ORDERED: ONDANSETRON 4 MG/2 ML VIAL IV ONE (01:00)
[2022-11-20] MEDS ORDERED: HYDROMORPHONE 1 MG/1 ML DISP.SYRIN IV ONE ×3 (01:00→04:45)
--- NOTE | 2022-11-20 01:00 | NUR ---
AT BEDSIDE FOR EVAL.
[2022-11-20] MEDS ORDERED: ONDANSETRON 4 MG/2 ML VIAL ONE (01:52)
[2022-11-20] MEDS ORDERED: HYDROMORPHONE 1 MG/1 ML DISP.SYRIN ONE ×2 (01:52→02:18)
[2022-11-20 01:54] LABS: HEMATOCRIT 38.3 % (31.2-41.9); MEAN CORPUSCULAR HEMOGLOBIN 30.5 uug (24.7-32.8); MEAN CORPUSCULAR VOLUME 93.7 fL (75.5-95.3); PLATELET COUNT (AUTO) 220 K/uL (179-408)
[2022-11-20 02:02] LABS: CREATININE 0.8 mg/dL (0.6-1.3); POTASSIUM 4.2 mmol/L (3.5-5.1)
[2022-11-20 02:13] LABS: BILIRUBIN,DIRECT 0.1 mg/dL (0.0-0.2); BILIRUBIN,TOTAL 0.3 mg/dL (0.2-1.0); TOTAL PROTEIN, SERUM 8.2 g/dL (6.4-8.2)
[2022-11-20 03:38] LABS: *BILIRUBIN,URIN NEGATIVE (NEGATIVE); *BLOOD, URINE NEGATIVE (NEGATIVE); *CLARITY,URINE CLEAR (CLEAR); *COLOR,URINE YELLOW (YELLOW); *KETONES,URINE NEGATIVE (NEGATIVE); *UROBILINOGEN,URINE 0.2 E.U./dl (NORMAL); LEUKOCYTE ESTERASE ,URINE NEGATIVE (NEGATIVE); NITRITE, URINE NEGATIVE (NEGATIVE); PH,URINE 5.5 (5.0-8.0); UGLUCOSE NEGATIVE (NEGATIVE)
[2022-11-20] MEDS ORDERED: HYDROMORPHONE 2 MG/1 ML DISP.SYRIN ONE (04:38)
[2022-11-20] MEDS ORDERED: HYDR-3980 PO (04:45)
[2022-11-20] MEDS ORDERED: PROC-11 PO (04:45)
--- NOTE | 2022-11-20 05:10 | NUR ---
PT A,A AND O X 4 WITH ABD PAIN 4/10 WITH NO N/V.Patient discharged to home in stable condition. Written and verbal after care instructions given. Patient verbalizes understanding of instructions. Stressed follow up or return to ER for worsening s/s.PT AMB OUT WITH WALKER WITH STEADY GAIT.
[2022-11-20 05:12] VITALS: BP 111/70
== END 2022-11-20 05:10 | disposition home or self-care (01) ==
LOC: ER 00:28
DX: R11.2 Nausea with vomiting, unspecified (principal); R10.9 Unspecified abdominal pain; T50.905A Adverse effect of unspecified drugs, medicaments and biological substances, initial encounter; I50.9 Heart failure, unspecified; J45.909 Unspecified asthma, uncomplicated; F17.210 Nicotine dependence, cigarettes, uncomplicated; Z90.49 Acquired absence of other specified parts of digestive tract; Z79.899 Other long term (current) drug therapy; Z79.1 Long term (current) use of non-steroidal anti-inflammatories (NSAID); Y92.89 Other specified places as the place of occurrence of the external cause
CPT/HCPCS: 99284; 96374; 96361; 96375; 80076; 80048; 81003; 85025; 87040; 36415; 96376; J2405; J1170 ×3; J7040; A4663

== ENCOUNTER 2022-11-26 21:34 | Emergency (ER) | payer OTHER ==
[~2022-11-26] VITALS: Ht 165.1 cm; Wt 145.1 kg
[~2022-11-26 21:34] MED LIST changes: +HYDR-3980 PO; +PROC-11 PO
[2022-11-26] MEDS ORDERED: IV NORMAL SALINE 500 ML BAG IV ONE (22:00)
[2022-11-26 22:38] LABS: HEMATOCRIT 37.6 % (31.2-41.9); MEAN CORPUSCULAR HEMOGLOBIN 30.3 uug (24.7-32.8); PLATELET COUNT (AUTO) 262 K/uL (179-408)
[2022-11-26] MEDS ORDERED: ONDANSETRON 4 MG/2 ML VIAL IV ONE (22:45)
[2022-11-26] MEDS ORDERED: ONDANSETRON 4 MG/2 ML VIAL ONE (22:52)
[2022-11-26 23:17] LABS: POTASSIUM 3.4 mmol/L (3.5-5.1)
[2022-11-26 23:23] LABS: BILIRUBIN,DIRECT 0.1 mg/dL (0.0-0.2); BILIRUBIN,TOTAL 0.2 mg/dL (0.2-1.0); TOTAL PROTEIN, SERUM 7.9 g/dL (6.4-8.2)
[2022-11-26] MEDS ORDERED: KETOROLAC TROMETHAMINE 15 MG INJ IVP ONE (23:30)
[2022-11-26] MEDS ORDERED: KETOROLAC TROMETHAMINE 15 MG INJ ONE (23:32)
[2022-11-27] MEDS ORDERED: OXYCODONE/APAP 5-325 MG TABLET ONE ×2 (00:27→01:28)
[2022-11-27] MEDS ORDERED: OXYCODONE/APAP 5-325 MG TABLET PO ONE ×2 (00:30→01:30)
[2022-11-27] MEDS ORDERED: LOPE2CAP40 PO (01:34)
[2022-11-27 01:45] VITALS: BP 144/92
== END 2022-11-27 01:40 | disposition home or self-care (01) ==
LOC: ER 21:35
DX: R10.9 Unspecified abdominal pain (principal); R11.2 Nausea with vomiting, unspecified; I50.9 Heart failure, unspecified; J45.909 Unspecified asthma, uncomplicated; G89.29 Other chronic pain; M54.9 Dorsalgia, unspecified; F17.210 Nicotine dependence, cigarettes, uncomplicated; Z90.49 Acquired absence of other specified parts of digestive tract; Z79.899 Other long term (current) drug therapy; Z79.1 Long term (current) use of non-steroidal anti-inflammatories (NSAID)
CPT/HCPCS: 36415; 83690; 85025; A4663; J1885; J2405; J7040

== ENCOUNTER 2023-01-11 00:09 | Emergency (ER) | payer OTHER ==
[~2023-01-11] VITALS: Ht 165.1 cm; Wt 145.1 kg
[~2023-01-11 00:09] MED LIST changes: +LOPE2CAP40 PO
--- NOTE | 2023-01-11 00:52 | NUR ---
Patient assisted into bed, placed on monitor, bedside EKG done for MD review. #24g established in right wrist, unable to draw blood at this time. No s/s of any distress noted, ER provider at bedside for exam.
[2023-01-11] MEDS ORDERED: NITROGLYCERIN OINT 1 GM PACKET TP ONE ×2 (01:00→01:09)
[2023-01-11] MEDS ORDERED: HYDROMORPHONE 1 MG/1 ML DISP.SYRIN IV ONE ×4 (01:00→05:30)
[2023-01-11] MEDS ORDERED: ONDANSETRON 4 MG/2 ML VIAL IV ONE (01:00)
--- NOTE | 2023-01-11 01:07 | NUR ---
LAB AT BEDSIDE.
[2023-01-11] MEDS ORDERED: ONDANSETRON 4 MG/2 ML VIAL ONE (01:09)
[2023-01-11] MEDS ORDERED: HYDROMORPHONE 2 MG/1 ML DISP.SYRIN ONE (01:09)
[2023-01-11 01:58] LABS: HEMATOCRIT 34.4 % (31.2-41.9); MEAN CORPUSCULAR HEMOGLOBIN 30.6 uug (24.7-32.8); MEAN CORPUSCULAR VOLUME 94.4 fL (75.5-95.3); PLATELET COUNT (AUTO) 280 K/uL (179-408)
--- NOTE | 2023-01-11 01:58 | NUR ---
instrument room technician at bedside.
[2023-01-11] MEDS ORDERED: HYDROMORPHONE 1 MG/1 ML DISP.SYRIN ONE ×2 (02:05→04:38)
--- NOTE | 2023-01-11 02:10 | NUR ---
Medicated as per order with 1mg of dilaudid at this time.
[2023-01-11 02:21] LABS: MAGNESIUM 2.2 mg/dL (1.8-2.4)
[2023-01-11 03:13] LABS: CARBON DIOXIDE 28 mmol/L (21-32); CHLORIDE 106 mmol/L (98-107); CREATININE 0.9 mg/dL (0.6-1.3); POTASSIUM 3.4 mmol/L (3.5-5.1); UREA NITROGEN, BLOOD 9 mg/dL (7-18)
[2023-01-11 03:24] LABS: ALANINE AMINOTRANSFERASE 15 U/L (14-59); ALKALINE PHOSPHATASE 89 U/L (50-136); ASPARTATE AMINOTRANSFERASE 14 U/L (15-37); BILIRUBIN,DIRECT 0.1 mg/dL (0.0-0.2); BILIRUBIN,TOTAL 0.3 mg/dL (0.2-1.0)
--- NOTE | 2023-01-11 03:45 | NUR ---
Patient awake talking on phone, no voiced c/o pain or discomfort at this time.
[2023-01-11] MEDS ORDERED: METHYLERGONOVINE MALEATE 0.2 MG/ML AMP IV ONE (04:15)
[2023-01-11] MEDS ORDERED: POTASSIUM BICARBONATE/CIT AC 25 MEQ TABLET.EFF PO ONE (04:15)
--- NOTE | 2023-01-11 04:17 | NUR ---
Requested and given a urinal, no voiced c/o at this time.
[2023-01-11] MEDS ORDERED: POTASSIUM BICARBONATE/CIT AC 25 MEQ TABLET.EFF ONE (04:30)
[2023-01-11] MEDS ORDERED: HYDR-3980 PO (04:34)
--- NOTE | 2023-01-11 04:50 | NUR ---
Patient was medicated as per order with 1mg of dilaudid for pain 10/07
--- NOTE | 2023-01-11 05:23 | NUR ---
ACI GIVEN, HL REMOVED REMAINS STABLE FOR DISCHARGE HOME WITH FAMILY.
[2023-01-11 05:34] VITALS: BP 146/70; O2SAT 97
== END 2023-01-11 05:35 | disposition home or self-care (01) ==
LOC: ER 00:09
DX: R07.89 Other chest pain (principal); N93.9 Abnormal uterine and vaginal bleeding, unspecified; D25.9 Leiomyoma of uterus, unspecified; I50.9 Heart failure, unspecified; J45.909 Unspecified asthma, uncomplicated; F17.210 Nicotine dependence, cigarettes, uncomplicated; Z90.49 Acquired absence of other specified parts of digestive tract; Z79.899 Other long term (current) drug therapy; Z79.1 Long term (current) use of non-steroidal anti-inflammatories (NSAID)
CPT/HCPCS: 99285; 96374; 76856; 71045; 96375; 80076; 80048; 83550; 83735; 85025; 86850; 86900; 86901; 84484 ×2; 36415; 93005; 96376; J2405; J1170 ×3; J2210; A4663

== ENCOUNTER 2023-01-13 22:51 | Emergency (ER) | payer OTHER ==
[~2023-01-13] VITALS: Ht 165.1 cm; Wt 147.4 kg
[2023-01-13 23:05] VITALS: O2SAT 98
--- NOTE | 2023-01-13 23:15 | NUR ---
PT AMB TO RM 2A WITH WALKER.
[2023-01-13 23:56] LABS: MEAN CORPUSCULAR HEMOGLOBIN 30.3 uug (24.7-32.8); PLATELET COUNT (AUTO) 303 K/uL (179-408)
[2023-01-14] MEDS ORDERED: ONDANSETRON 4 MG/2 ML VIAL IV ONE
[2023-01-14] MEDS ORDERED: MORPHINE SULFATE 4 MG/1 ML DISP.SYRIN IV ONE
[2023-01-14] MEDS ORDERED: ONDANSETRON 4 MG/2 ML VIAL ONE (00:03)
[2023-01-14] MEDS ORDERED: MORPHINE SULFATE 4 MG/1 ML DISP.SYRIN ONE (00:03)
[2023-01-14] MEDS ORDERED: IV NORMAL SALINE 250 ML IV ONE (00:08)
[2023-01-14] MEDS ORDERED: IOHEXOL 300MG/ML 100 ML INFUS..BTL ONE (00:08)
[2023-01-14] MEDS ORDERED: SWABABLE VALVE TRANSFER SET EA MC ONE (00:08)
[2023-01-14 00:14] LABS: CREATININE 0.9 mg/dL (0.6-1.3); POTASSIUM 3.1 mmol/L (3.5-5.1)
--- NOTE | 2023-01-14 00:15 | NUR ---
patient taken down to Ct
[2023-01-14 00:20] LABS: BILIRUBIN,TOTAL 0.2 mg/dL (0.2-1.0); TOTAL PROTEIN, SERUM 7.1 g/dL (6.4-8.2)
--- NOTE | 2023-01-14 00:34 | NUR ---
Pt. back from CT.
[2023-01-14] MEDS ORDERED: HALOPERIDOL LACTATE 5 MG/1 ML VIAL ONE (00:38)
[2023-01-14] MEDS ORDERED: HALOPERIDOL LACTATE 5 MG/1 ML VIAL IV ONE (00:45)
--- NOTE | 2023-01-14 01:04 | NUR ---
Patient was demanding epidural been rude to staff aggressive, combative forcefully removed her IV access and using her walker walk out of the room. When she was questioned just stated "I'm leaving". notified. patient refused to go back to her bed.
== END 2023-01-14 01:09 | disposition left against medical advice (07) ==
LOC: ER 22:51
DX: R10.84 Generalized abdominal pain (principal); Z90.49 Acquired absence of other specified parts of digestive tract; F17.210 Nicotine dependence, cigarettes, uncomplicated; Z79.899 Other long term (current) drug therapy
CPT/HCPCS: 99285; 74177; 80053; 83690; 85025; 96374; 96375; J1630; J2405; Q9967; J2270; A4663

== ENCOUNTER 2023-02-14 23:22 | Emergency (ER) | payer OTHER ==
[~2023-02-14] VITALS: Ht 165.1 cm; Wt 148.8 kg
[2023-02-14] MEDS ORDERED: KETOROLAC TROMETHAMINE 30 MG INJ ONE (23:57)
[2023-02-14] MEDS ORDERED: HYDROMORPHONE HCL 2 MG TABLET ONE (23:58)
[2023-02-15] MEDS ORDERED: KETOROLAC TROMETHAMINE 30 MG INJ IM ONE
[2023-02-15] MEDS ORDERED: HYDROMORPHONE HCL 2 MG TABLET PO ONE ×2 (01:45)
[2023-02-15] MEDS ORDERED: HYDROMORPHONE HCL 2 MG TABLET ONE (01:48)
[2023-02-15 01:53] VITALS: BP 156/91; O2SAT 97
== END 2023-02-15 01:54 | disposition home or self-care (01) ==
LOC: ER 23:37
DX: G89.29 Other chronic pain (principal); M79.662 Pain in left lower leg; M25.562 Pain in left knee; F17.210 Nicotine dependence, cigarettes, uncomplicated; Z71.6 Tobacco abuse counseling; Z90.49 Acquired absence of other specified parts of digestive tract; Z79.2 Long term (current) use of antibiotics; Z79.1 Long term (current) use of non-steroidal anti-inflammatories (NSAID); Z79.899 Other long term (current) drug therapy
CPT/HCPCS: 99285; 93970; 73564; 73590; 99406; 96372; J1885; A4663

== ENCOUNTER 2023-02-16 20:12 | Emergency (ER) | payer OTHER ==
[~2023-02-16] VITALS: Ht 165.1 cm; Wt 145.1 kg
[2023-02-16 20:42] VITALS: O2SAT 100
[2023-02-16] MEDS ORDERED: KETOROLAC TROMETHAMINE 30 MG INJ IM ONE (21:30)
[2023-02-16] MEDS ORDERED: ONDANSETRON ODT 4 MG TAB.RAPDIS SL ONE (21:30)
[2023-02-16] MEDS ORDERED: KETOROLAC TROMETHAMINE 30 MG INJ ONE (21:44)
== END 2023-02-16 22:00 | disposition home or self-care (01) ==
LOC: ER 20:14
DX: B34.9 Viral infection, unspecified (principal); R11.0 Nausea; G89.29 Other chronic pain; F17.210 Nicotine dependence, cigarettes, uncomplicated; Z90.49 Acquired absence of other specified parts of digestive tract; Z79.899 Other long term (current) drug therapy; Z20.822 Contact with and (suspected) exposure to COVID-19
CPT/HCPCS: 99283; 87426; 96372; J1885; A4663

== ENCOUNTER → 2023-03-18 | Emergency (ER) | payer OTHER ==
[~2023-03-18] VITALS: Ht 165.1 cm; Wt 146.1 kg
[~2023-03-18] MED LIST changes: +CEFTRIAXONE /D5W 50ML IVPB **ER PYXIS IV ONE; +CEFTRIAXONE 1 G in IV DEXTROSE 5% 50 ML IV ONE; +HYDR2TAB4 PO; +HYDROMORPHONE HCL 2 MG TABLET ONE; +HYDROMORPHONE HCL 2 MG TABLET PO ONE; +IV NORMAL SALINE 1000 ML BAG IV ONE; +MORPHINE SULFATE 2 MG/1 ML DISP.SYRIN IV ONE; +MORPHINE SULFATE 4 MG/1 ML DISP.SYRIN ONE; +ONDANSETRON 4 MG/2 ML VIAL IV ONE; +ONDANSETRON 4 MG/2 ML VIAL ONE; +diphenhydrAMINE 50 MG/1 ML VIAL IV ONE; +diphenhydrAMINE 50 MG/1 ML VIAL ONE
[2023-03-18 14:24] LABS: *BILIRUBIN,URIN NEGATIVE (NEGATIVE); *BLOOD, URINE NEGATIVE (NEGATIVE); *CLARITY,URINE CLEAR (CLEAR); *COLOR,URINE YELLOW (YELLOW); *KETONES,URINE NEGATIVE (NEGATIVE); *PROTEIN,URINE 1+ (NEGATIVE); *UROBILINOGEN,URINE 0.2 E.U./dl (NORMAL); LEUKOCYTE ESTERASE ,URINE NEGATIVE (NEGATIVE); NITRITE, URINE NEGATIVE (NEGATIVE); UGLUCOSE NEGATIVE (NEGATIVE)
[2023-03-18 14:34] LABS: BACTERIA,URINE MODERATE /HPF (NONE SEEN); SQUAMOUS EPITHELIAL CELL,UR FEW /HPF (NONE SEEN); WBC,URINE 0-3 /HPF (0-3)
[2023-03-18 18:56] VITALS: BP 130/70; TEMP 98; O2SAT 99
== END | disposition home or self-care (01) ==
LOC: ER 13:21
DX: G89.29 Other chronic pain (principal); M54.9 Dorsalgia, unspecified; R07.89 Other chest pain; F17.210 Nicotine dependence, cigarettes, uncomplicated; Z90.49 Acquired absence of other specified parts of digestive tract; Z79.899 Other long term (current) drug therapy; Z79.1 Long term (current) use of non-steroidal anti-inflammatories (NSAID)
CPT/HCPCS: 99285; 74176; 96365; 71045; 96375; 81001; 93005; J0696; J1200; J2405; J2270; J7040; A4663

== ENCOUNTER 2023-08-04 19:59 | Emergency (ER) | payer OTHER ==
[~2023-08-04] VITALS: Ht 165.1 cm; Wt 143.8 kg
[~2023-08-04 19:59] MED LIST changes: -CEFTRIAXONE /D5W 50ML IVPB **ER PYXIS IV ONE; -CEFTRIAXONE 1 G in IV DEXTROSE 5% 50 ML IV ONE; -HYDROMORPHONE HCL 2 MG TABLET ONE; -HYDROMORPHONE HCL 2 MG TABLET PO ONE; -IV NORMAL SALINE 1000 ML BAG IV ONE; -MORPHINE SULFATE 2 MG/1 ML DISP.SYRIN IV ONE; -MORPHINE SULFATE 4 MG/1 ML DISP.SYRIN ONE; -ONDANSETRON 4 MG/2 ML VIAL IV ONE; -ONDANSETRON 4 MG/2 ML VIAL ONE; -diphenhydrAMINE 50 MG/1 ML VIAL IV ONE; -diphenhydrAMINE 50 MG/1 ML VIAL ONE
[2023-08-04] MEDS ORDERED: KETOROLAC TROMETHAMINE 30 MG INJ ONE (20:57)
[2023-08-04] MEDS ORDERED: FAMOTIDINE 20 MG TABLET ONE (20:57)
[2023-08-04] MEDS ORDERED: ONDANSETRON ODT 4 MG TAB.RAPDIS ONE (20:57)
[2023-08-04] MEDS: FAMOTIDINE 20 MG TABLET PO ONE (21:08)
[2023-08-04] MEDS: ONDANSETRON ODT 4 MG TAB.RAPDIS SL ONE (21:08)
[2023-08-04] MEDS: KETOROLAC TROMETHAMINE 30 MG INJ IM ONE (21:09)
[2023-08-04] MEDS ORDERED: METH4TAB3 PO (21:49)
[2023-08-04] MEDS ORDERED: ONDA4TAB11 PO (21:49)
[2023-08-04 22:28] VITALS: BP 136/88; TEMP 98.2; O2SAT 99
== END 2023-08-04 22:29 | disposition home or self-care (01) ==
LOC: ER 20:02
DX: U07.1 COVID-19 (principal); R06.00 Dyspnea, unspecified; M79.10 Myalgia, unspecified site; R03.0 Elevated blood-pressure reading, without diagnosis of hypertension; R11.2 Nausea with vomiting, unspecified; F17.200 Nicotine dependence, unspecified, uncomplicated; J45.909 Unspecified asthma, uncomplicated; Z79.899 Other long term (current) drug therapy; Z98.890 Other specified postprocedural states; Z20.822 Contact with and (suspected) exposure to COVID-19
CPT/HCPCS: 71045; A4606; A4663; J1885; Q0162

== ENCOUNTER 2023-11-21 23:18 | Inpatient (IN) | payer OTHER ==
[~2023-11-21] VITALS: Ht 170.2 cm; Wt 149.7 kg
[~2023-11-21 23:18] MED LIST changes: +METH4TAB3 PO; +ONDA4TAB11 PO
[2023-11-22] MEDS ORDERED: HYDROMORPHONE 1 MG/1 ML DISP.SYRIN ONE ×3 (00:21→05:43)
[2023-11-22] MEDS: HYDROMORPHONE 1 MG/1 ML DISP.SYRIN IM ONE (00:25)
[2023-11-22 00:39] LABS: DIFFERENTIAL COMMENT 0; EOSINOPHILS # (AUTO) 0.1 K/uL (0.0-0.7); RED BLOOD CELL COUNT(AUTO) 3.96 MIL/uL (3.63-4.92); RED CELL DISTRIBUTION WIDTH 15.2 % (12.3-17.7)
[2023-11-22 00:39] LABS: *BILIRUBIN,URIN NEGATIVE (NEGATIVE); *BLOOD, URINE NEGATIVE (NEGATIVE); *CLARITY,URINE CLEAR (CLEAR); *COLOR,URINE YELLOW (YELLOW); *KETONES,URINE NEGATIVE (NEGATIVE); *PROTEIN,URINE NEGATIVE (NEGATIVE); *UROBILINOGEN,URINE 0.2 E.U./dl (NORMAL); LEUKOCYTE ESTERASE ,URINE NEGATIVE (NEGATIVE); NITRITE, URINE NEGATIVE (NEGATIVE); UGLUCOSE NEGATIVE (NEGATIVE)
[2023-11-22 00:57] LABS: BASOPHILS # (AUTO) 0.1 K/UL (0.0-0.2); EOSINOPHILS % (AUTO) 1.6 % (0.0-7.0); HEMOGLOBIN 12.4 g/dL (10.9-14.3); LYMPHOCYTES # (AUTO) 1.3 K/uL (0.8-4.8); LYMPHOCYTES % (AUTO) 23.5 % (20.5-51.5); MEAN CORPUSCULAR HEMOGLOBIN 31.4 uug (24.7-32.8); MEAN CORPUSCULAR HGB CONC 34 g/dL (32.3-35.6); MEAN CORPUSCULAR VOLUME 93.4 fL (75.5-95.3); MONOCYTES # (AUTO) 0.6 K/uL (0.1-1.30); MONOCYTES % (AUTO) 11.8 % (0.0-11.0); NEUTROPHILS # (AUTO) 3.3 K/uL (1.8-8.9); NEUTROPHILS % (AUTO) 62.1 % (38.5-71.5); PLATELET COUNT (AUTO) 280 K/uL (179-408); WHITE BLOOD COUNT (AUTO) 5.3 K/uL (3.8-11.8)
[2023-11-22 01:09] LABS: CALCIUM 9.4 mg/dL (8.5-10.1); POTASSIUM 3.6 mmol/L (3.5-5.1)
[2023-11-22 01:15] LABS: ALBUMIN 3.7 g/dL (3.4-5.0); BILIRUBIN,TOTAL 0.4 mg/dL (0.2-1.0); TOTAL PROTEIN, SERUM 8.2 g/dL (6.4-8.2)
[2023-11-22] MEDS: KETOROLAC TROMETHAMINE 15 MG INJ IVP ONE (01:44)
[2023-11-22] MEDS: HYDROMORPHONE 1 MG/1 ML DISP.SYRIN IV ONE ×3 (02:36→14:47)
[2023-11-22] MEDS ORDERED: LISI-782 PO (05:53)
[2023-11-22] MEDS ORDERED: PANT40TA2 PO (05:54)
[2023-11-22] MEDS ORDERED: SEMA1PEN SQ (05:54)
[2023-11-22] MEDS ORDERED: AMLO10TA4 PO (05:54)
[2023-11-22] MEDS: MORPHINE SULFATE 2 MG/1 ML DISP.SYRIN IM PRN (12:29)
[2023-11-22] MEDS ORDERED: ACETAMINOPHEN 325 MG TABLET PO PRN (13:15)
[2023-11-22] MEDS ORDERED: ONDANSETRON 4 MG/2 ML VIAL IV PRN (13:15)
[2023-11-22] MEDS ORDERED: ZOLPIDEM 5 MG TABLET PO PRN (13:15)
[2023-11-22] MEDS ORDERED: REMEDY ESSENTIAL ZINC PASTE 113 GM TP PRN (13:15)
[2023-11-22] MEDS ORDERED: HYDROCODONE/APAP 10-325 MG TABLET PO PRN (13:15)
[2023-11-22] MEDS ORDERED: MAGNESIUM HYDROXIDE 30 ML LIQUID UDC PO PRN (13:15)
[2023-11-22] MEDS ORDERED: FLUOXETINE HCL 20 MG CAPSULE PO SCH (13:30)
[2023-11-22] MEDS ORDERED: MORPHINE SULFATE 2 MG/1 ML DISP.SYRIN IV PRN (13:30)
[2023-11-22] MEDS ORDERED: FUROSEMIDE 40 MG TABLET PO SCH (13:30)
[2023-11-22] MEDS ORDERED: AMLODIPINE 10 MG TABLET PO SCH (13:30)
[2023-11-22] MEDS ORDERED: LISINOPRIL 5 MG TABLET PO SCH (13:30)
[2023-11-22] MEDS ORDERED: NALOXONE HCL 0.4 MG/ML AMPUL IV PRN (14:30)
[2023-11-22] MEDS: LISINOPRIL 5 MG TABLET PO SCH (16:00)
[2023-11-22 16:04] VITALS: BP 145/87; TEMP 97.7; O2SAT 95
[2023-11-22] MEDS: FUROSEMIDE 40 MG TABLET PO SCH (16:18)
[2023-11-22] MEDS: FLUOXETINE HCL 20 MG CAPSULE PO SCH (16:18)
[2023-11-22] MEDS: AMLODIPINE 10 MG TABLET PO SCH (16:19)
[2023-11-22] MEDS: DOCUSATE SODIUM 100 MG CAPSULE PO SCH (20:02)
[2023-11-22] MEDS: OXYCODONE HCL 10 MG TAB.SR.12H PO SCH (20:03)
[2023-11-22] MEDS: ENOXAPARIN SODIUM 40 MG/0.4 ML DISP.SYRIN SQ SCH (20:04)
[2023-11-22 21:35] VITALS: BP 148/89; TEMP 98.2; O2SAT 98
[2023-11-23] MEDS: HYDROMORPHONE 1 MG/1 ML DISP.SYRIN IV ONE (00:56)
[2023-11-23 04:00] VITALS: BP 111/69; TEMP 98; O2SAT 98
[2023-11-23] MEDS: PANTOPRAZOLE SODIUM 40 MG TABLET.DR PO SCH (06:20)
[2023-11-23 08:15] LABS: BASOPHILS % (AUTO) 0.8 % (0.0-2.0); EOSINOPHILS # (AUTO) 0.2 K/uL (0.0-0.7); EOSINOPHILS % (AUTO) 3.9 % (0.0-7.0); HEMATOCRIT 33.8 % (31.2-41.9); HEMOGLOBIN 11.4 g/dL (10.9-14.3); LYMPHOCYTES # (AUTO) 1.7 K/uL (0.8-4.8); LYMPHOCYTES % (AUTO) 34.7 % (20.5-51.5); MEAN CORPUSCULAR HEMOGLOBIN 31.4 uug (24.7-32.8); MEAN CORPUSCULAR HGB CONC 34 g/dL (32.3-35.6); MEAN CORPUSCULAR VOLUME 93.5 fL (75.5-95.3); MONOCYTES # (AUTO) 0.6 K/uL (0.1-1.30); MONOCYTES % (AUTO) 12.8 % (0.0-11.0); NEUTROPHILS # (AUTO) 2.3 K/uL (1.8-8.9); NEUTROPHILS % (AUTO) 47.8 % (38.5-71.5); PLATELET COUNT (AUTO) 268 K/uL (179-408); RED BLOOD CELL COUNT(AUTO) 3.62 MIL/uL (3.63-4.92); RED CELL DISTRIBUTION WIDTH 15.3 % (12.3-17.7); WHITE BLOOD COUNT (AUTO) 4.8 K/uL (3.8-11.8)
[2023-11-23 08:17] LABS: DIFFERENTIAL COMMENT 1
[2023-11-23 08:30] LABS: CREATININE 0.8 mg/dL (0.6-1.3); MAGNESIUM 2.2 mg/dL (1.8-2.4); PHOSPHOROUS 3.4 mg/dL (2.5-4.9)
[2023-11-23 08:32] LABS: THYROID STIMULATING HORMONE 1.45 mIU/mL (0.358-3.740)
[2023-11-23] MEDS ORDERED: NALOXONE HCL 0.4 MG/ML AMPUL IV PRN (10:15)
[2023-11-23] MEDS: OXYCODONE HCL 10 MG TAB.SR.12H PO SCH (10:28)
[2023-11-23 11:26] VITALS: BP 118/73; TEMP 98.3; O2SAT 95
== END 2023-11-23 13:00 | disposition home or self-care (01) | DRG 347 ==
LOC: ER 23:29 → MEDSURG3 11-22 10:12
DX: M51.16 Intervertebral disc disorders with radiculopathy, lumbar region (principal); Z68.43 Body mass index [BMI] 50.0-59.9, adult; F17.210 Nicotine dependence, cigarettes, uncomplicated; G89.29 Other chronic pain; J45.909 Unspecified asthma, uncomplicated; M17.0 Bilateral primary osteoarthritis of knee; K22.70 Barrett's esophagus without dysplasia; K44.9 Diaphragmatic hernia without obstruction or gangrene; E66.01 Morbid (severe) obesity due to excess calories; Z98.84 Bariatric surgery status; Z82.49 Family history of ischemic heart disease and other diseases of the circulatory system; Z79.891 Long term (current) use of opiate analgesic; Z79.899 Other long term (current) drug therapy
CPT/HCPCS: 36415; 72131; 83735; 84100; 84443; 85025; A4663; G0378; J1170; J1650; J1885; J2270

== ENCOUNTER 2025-01-09 01:00 | Emergency (ER) | payer MEDICAID, OTHER ==
[~2025-01-09] VITALS: Ht 170.2 cm; Wt 149.7 kg
[~2025-01-09 01:00] MED LIST changes: +AMLO10TA4 PO; -BACL20TA PO; -CYCL10TA9 PO; -DEXT15SY3 PO; -DIPH25CA83 PO; -DIPH25TA62 PO; -FLUC150T PO; -HYDR-3980 PO; -HYDR-4209 PO; -HYDR2TAB4 PO; -HYDR4TAB4 PO; -IBUP-1955 PO; -LIDO30AD10 TP; +LISI-782 PO; -LISI10TA29 PO; -LOPE2CAP40 PO; -LORA-259 PO; -METH4TAB3 PO; -ONDA4TAB11 PO; -OXYC-128 PO; -OXYC-133 PO; -OXYC1TAB12 PO; +PANT40TA2 PO; -PRED20TA PO; -PROC-11 PO; +SEMA1PEN SQ
[2025-01-09] MEDS ORDERED: HYDROCODONE/APAP 10-325 MG TABLET ONE (01:42)
[2025-01-09] MEDS ORDERED: KETOROLAC TROMETHAMINE 30 MG INJ ONE (01:50)
[2025-01-09] MEDS: KETOROLAC TROMETHAMINE 30 MG INJ IM ONE (01:57)
[2025-01-09] MEDS: HYDROCODONE/APAP 10-325 MG TABLET PO ONE (01:57)
[2025-01-09] MEDS ORDERED: OXYC-133 PO (02:27)
[2025-01-09] MEDS ORDERED: ONDANSETRON ODT 4 MG TAB.RAPDIS ONE (02:36)
[2025-01-09] MEDS ORDERED: HYDROMORPHONE 2 MG/1 ML DISP.SYRIN ONE (02:36)
[2025-01-09] MEDS: ONDANSETRON ODT 4 MG TAB.RAPDIS SL ONE (02:42)
[2025-01-09] MEDS: HYDROMORPHONE 1 MG/1 ML DISP.SYRIN IM ONE (02:42)
[2025-01-09 02:48] VITALS: BP 117/80; O2SAT 99
== END 2025-01-09 02:48 | disposition home or self-care (01) ==
LOC: ER 01:22
DX: S40.012A Contusion of left shoulder, initial encounter (principal); M25.562 Pain in left knee; F17.210 Nicotine dependence, cigarettes, uncomplicated; F32.A Depression, unspecified; M19.90 Unspecified osteoarthritis, unspecified site; E66.01 Morbid (severe) obesity due to excess calories; I10 Essential (primary) hypertension; J45.909 Unspecified asthma, uncomplicated; Z79.899 Other long term (current) drug therapy; Z88.7 Allergy status to serum and vaccine; Z85.01 Personal history of malignant neoplasm of esophagus; Z68.43 Body mass index [BMI] 50.0-59.9, adult; Z60.2 Problems related to living alone; W18.2XXA Fall in (into) shower or empty bathtub, initial encounter; Y93.E1 Activity, personal bathing and showering; Y92.091 Bathroom in other non-institutional residence as the place of occurrence of the external cause; Y99.8 Other external cause status
CPT/HCPCS: 73020; 73560; 73600; A4606; A4663; J1171; J1885; Q0162

== ENCOUNTER 2025-01-10 20:13 | Emergency (ER) | payer OTHER ==
[~2025-01-10] VITALS: Ht 170.2 cm; Wt 149.7 kg
[2025-01-10] MEDS ORDERED: HYDROMORPHONE 2 MG/1 ML DISP.SYRIN ONE (21:02)
[2025-01-10] MEDS: HYDROMORPHONE 1 MG/1 ML DISP.SYRIN SQ ONE (21:07)
[2025-01-10 21:09] VITALS: BP 137/91; O2SAT 100
== END 2025-01-10 21:09 | disposition home or self-care (01) ==
LOC: ER 20:19
DX: M25.512 Pain in left shoulder (principal); J45.909 Unspecified asthma, uncomplicated; F17.210 Nicotine dependence, cigarettes, uncomplicated; E66.01 Morbid (severe) obesity due to excess calories; M19.90 Unspecified osteoarthritis, unspecified site; Z79.899 Other long term (current) drug therapy; Z88.7 Allergy status to serum and vaccine; Z68.43 Body mass index [BMI] 50.0-59.9, adult; Z85.01 Personal history of malignant neoplasm of esophagus
CPT/HCPCS: 99283; 96372; J1171; A4606; A4663

== ENCOUNTER 2025-02-14 18:12 | Emergency (ER) | payer MEDICAID, OTHER ==
[~2025-02-14] VITALS: Ht 165.1 cm; Wt 122.5 kg
[2025-02-14 20:47] LABS: PLATELET COUNT (AUTO) 284 K/uL (179-408); RED BLOOD CELL COUNT(AUTO) 3.93 MIL/uL (3.63-4.92); RED CELL DISTRIBUTION WIDTH 16.8 % (12.3-17.7); WHITE BLOOD COUNT (AUTO) 5.4 K/uL (3.8-11.8)
[2025-02-14] MEDS ORDERED: MORPHINE SULFATE 4 MG/1 ML DISP.SYRIN ONE (20:55)
[2025-02-14] MEDS ORDERED: ONDANSETRON 4 MG/2 ML VIAL ONE (20:55)
[2025-02-14] MEDS ORDERED: diphenhydrAMINE 50 MG/1 ML VIAL ONE (20:55)
[2025-02-14] MEDS ORDERED: MORPHINE SULFATE 2 MG/1 ML DISP.SYRIN ONE (20:56)
[2025-02-14 20:59] LABS: CREATININE 0.6 mg/dL (0.6-1.3); SODIUM SERUM 140.0 mmol/L (136-145); UREA NITROGEN, BLOOD 8.0 mg/dL (7-18)
[2025-02-14 21:05] LABS: ASPARTATE AMINOTRANSFERASE 11.0 U/L (15-37); TOTAL PROTEIN, SERUM 7.3 g/dL (6.4-8.2)
[2025-02-14] MEDS: diphenhydrAMINE 50 MG/1 ML VIAL IV ONE (21:10)
[2025-02-14] MEDS: MORPHINE SULFATE 4 MG/1 ML DISP.SYRIN IV ONE (21:12)
[2025-02-14] MEDS: ONDANSETRON 4 MG/2 ML VIAL IV ONE (21:12)
[2025-02-14] MEDS ORDERED: HYDROMORPHONE 1 MG/1 ML DISP.SYRIN ONE (23:19)
[2025-02-14] MEDS: HYDROMORPHONE 1 MG/1 ML DISP.SYRIN IV ONE (23:23)
[2025-02-15 01:30] VITALS: BP 129/74; O2SAT 97
[2025-02-15] MEDS ORDERED: HYDROMORPHONE 1 MG/1 ML DISP.SYRIN ONE (01:42)
[2025-02-15] MEDS: HYDROMORPHONE 1 MG/1 ML DISP.SYRIN IV ONE (01:46)
== END 2025-02-15 01:33 | disposition short-term general hospital (02) ==
LOC: ER 18:21
DX: G89.29 Other chronic pain (principal); M25.562 Pain in left knee; M25.512 Pain in left shoulder; M54.9 Dorsalgia, unspecified; M79.605 Pain in left leg; F41.9 Anxiety disorder, unspecified; I10 Essential (primary) hypertension; J45.909 Unspecified asthma, uncomplicated; F17.210 Nicotine dependence, cigarettes, uncomplicated; M17.12 Unilateral primary osteoarthritis, left knee; M19.012 Primary osteoarthritis, left shoulder; Z79.899 Other long term (current) drug therapy; Z88.7 Allergy status to serum and vaccine
CPT/HCPCS: 99285; 96374; 96375; 80076; 80048; 85025; 36415; 73020; 73560; 96376; J7512; J1200; J1171 ×2; J2270 ×2; J2405